=== PATIENT | male | born 1930 | race Caucasian/White ===

== ENCOUNTER 2020-11-04 13:03 | Inpatient (IN) | payer MEDICARE, BC ==
[~2020-11-04] VITALS: Ht 190.5 cm; Wt 70.9 kg
[2020-11-04 14:38] LABS: HEMOGLOBIN 13.4 gm/dl (14.0-17.5); RED BLOOD COUNT 3.64 M/UL (4.20-5.50)
[2020-11-04 15:05] LABS: BUN/CREATININE RATIO 29 (0-10)
[2020-11-04] MEDS ORDERED: LEVOTHYROXINE50 MCG PO (21:04)
[2020-11-04] MEDS ORDERED: FUROSEMIDE20 MG PO (21:05)
[2020-11-04] MEDS ORDERED: POTASSIUM CHLO10 ME1 PO (21:06)
--- NOTE | 2020-11-04 22:09 | NUR ---
lab called a critical to me for this patient, I had just came out of a covid room and wasn't sure if he had arrived from ER. At this time he is still in the ER. It has came down from his last check. 1st lactic 22.8 2nd lactic 27.2 3rd lactic 26.3 Will report to hospitalist when pt arrives
[2020-11-05 02:04] LABS: HEMOGLOBIN 12.1 gm/dl (14.0-17.5); RED BLOOD COUNT 3.35 M/UL (4.20-5.50); WHITE BLOOD COUNT 6.9 K/UL (4.5-11.0)
[2020-11-05 02:38] LABS: BUN/CREATININE RATIO 36 (0-10)
[2020-11-05] MEDS ORDERED: VITAMIN D31250 MCG PO (09:31)
[2020-11-05] MEDS ORDERED: TENORMIN 50 MG50 MG PO (21:04)
[2020-11-05] MEDS ORDERED: COZAAR 25MG TAB25 MG PO (21:06)
[2020-11-07 04:28] LABS: RED BLOOD COUNT 3.31 M/UL (4.20-5.50); WHITE BLOOD COUNT 5.6 K/UL (4.5-11.0)
[2020-11-07 04:53] LABS: BUN/CREATININE RATIO 24 (0-10)
--- NOTE | 2020-11-07 17:19 | NUR ---
RECHECKED TEMP 98.5
[2020-11-08 03:40] LABS: HEMOGLOBIN 11.8 gm/dl (14.0-17.5); RED BLOOD COUNT 3.32 M/UL (4.20-5.50); WHITE BLOOD COUNT 5.4 K/UL (4.5-11.0)
[2020-11-08 04:33] LABS: BUN/CREATININE RATIO 18 (0-10)
[2020-11-09 03:44] LABS: HEMOGLOBIN 12.1 gm/dl (14.0-17.5); RED BLOOD COUNT 3.31 M/UL (4.20-5.50); WHITE BLOOD COUNT 5.6 K/UL (4.5-11.0)
[2020-11-09 04:17] LABS: BUN/CREATININE RATIO 18 (0-10)
[2020-11-10 02:53] LABS: HEMOGLOBIN 11.9 gm/dl (14.0-17.5); RED BLOOD COUNT 3.24 M/UL (4.20-5.50)
[2020-11-10 02:54] LABS: WHITE BLOOD COUNT 7.2 K/UL (4.5-11.0)
[2020-11-10 03:15] LABS: BUN/CREATININE RATIO 27 (0-10)
[2020-11-11 05:32] LABS: HEMOGLOBIN 11.9 gm/dl (14.0-17.5); RED BLOOD COUNT 3.28 M/UL (4.20-5.50); WHITE BLOOD COUNT 5.9 K/UL (4.5-11.0)
[2020-11-11 06:20] LABS: BUN/CREATININE RATIO 31 (0-10)
[2020-11-12 04:29] LABS: HEMOGLOBIN 12.4 gm/dl (14.0-17.5); RED BLOOD COUNT 3.47 M/UL (4.20-5.50); WHITE BLOOD COUNT 6.5 K/UL (4.5-11.0)
[2020-11-12 04:49] LABS: BUN/CREATININE RATIO 34 (0-10)
[2020-11-12 10:14] LABS: HBSAG SCREEN Negative (Negative); HEP A AB, IGM Negative (Negative); HEP B CORE AB, IGM Negative (Negative); HEP C VIRUS AB <0.1 (0.0-0.9)
[2020-11-13 05:37] LABS: HEMOGLOBIN 11.8 gm/dl (14.0-17.5); RED BLOOD COUNT 3.24 M/UL (4.20-5.50); WHITE BLOOD COUNT 8.2 K/UL (4.5-11.0)
[2020-11-13 05:53] LABS: BUN/CREATININE RATIO 38 (0-10)
--- NOTE | 2020-11-13 05:58 | NUR ---
Patient's trough elevated (24.4) Pharmacy notified. Orders to hold vancomycin this am.
[2020-11-13] MEDS ORDERED: METOPROLOL SUCC25 MG PO (12:57)
[2020-11-13] MEDS ORDERED: ELIQUIS 5 MG TAB5 MG PO (12:57)
[2020-11-13] MEDS ORDERED: MEGACE 400400 MG/10 PO (12:57)
[2020-11-13] MEDS ORDERED: MYCOSTATIN100000 UTS PO (12:57)
[2020-11-13] MEDS ORDERED: CLINDAMYCIN HC300 MG PO (13:13)
[2020-11-13] MEDS ORDERED: VANCOMYCIN HCL1 GM IV ×2 (13:13→13:19)
[2020-11-13] MEDS ORDERED: ASPIRIN EC81 MG PO (13:22)
[2020-11-13] MEDS ORDERED: LIPITOR20 MG PO (13:22)
== END 2020-11-13 18:58 | DRG 871 ==
LOC: ER1 13:03 → CDU 16:53 → M/S 16:53
PROVIDERS: Internal Medicine; Nurse Practitioner; ADMIT Family Medicine
PROC: B24BZZ4 Ultrasonography of Heart with Aorta, Transesophageal (ICD-10-PCS; principal; 2020-11-04)
DX: A41.89 Other specified sepsis (principal); G93.41 Metabolic encephalopathy; J69.0 Pneumonitis due to inhalation of food and vomit; R53.2 Functional quadriplegia; Z20.822 Contact with and (suspected) exposure to COVID-19; N30.00 Acute cystitis without hematuria; E87.2 Acidosis; R00.1 Bradycardia, unspecified; L89.321 Pressure ulcer of left buttock, stage 1; D50.9 Iron deficiency anemia, unspecified; D69.6 Thrombocytopenia, unspecified; E11.649 Type 2 diabetes mellitus with hypoglycemia without coma; F10.10 Alcohol abuse, uncomplicated; E03.9 Hypothyroidism, unspecified; E87.6 Hypokalemia; R94.31 Abnormal electrocardiogram [ECG] [EKG]; I10 Essential (primary) hypertension; R13.10 Dysphagia, unspecified; R53.81 Other malaise; F17.210 Nicotine dependence, cigarettes, uncomplicated; L89.311 Pressure ulcer of right buttock, stage 1; B95.2 Enterococcus as the cause of diseases classified elsewhere; I48.0 Paroxysmal atrial fibrillation; Z79.01 Long term (current) use of anticoagulants; Z79.4 Long term (current) use of insulin
CPT/HCPCS: ECHO; 0240U; 36415; 51702; 70450; 70551; 71045; 74230; 80048; 80053; 80061; 80074; 80162; 80202; 81001; 82550; 82553; 83036; 83605; 83690; 83735; 84100; 84132; 84439; 84443; 84484; 85025; 85027; 85610; 87040; 87077; 87086; 87186; 92526; 92610; 92611-GN; 93005; 93306; 94640; 94760; 96374; 97110; 97110-GP-CQ; 97116; 97116-GP-CQ; 97162; 97166; 97530; 97530-GP-CQ; 99285; J0456; J0696; J1644; J3370; J7030; J7070; U0002